=== PATIENT | female | born 1970 | race Caucasian/White ===

== ENCOUNTER 2018-03-01 07:46 | Day surgery (SDC) | payer BC ==
--- NOTE | 2018-03-01 07:08 | PCM.PREANE ---
Preanesthetic Assessment - Procedure Proposed Procedure: total laparoscopic hysterectomy - Anesthesia/Transfusion/Family Hx Anesthesia History: Prior Anesthesia Without Reaction (T+A, ectopic , tubal ligation: no anesthesia issues noted) Family History of Anesthesia Reaction: No Transfusion History: Prior Transfusion Without Reaction (post ectopic l995) - Review of Systems General: No Symptoms Pulmonary: No Symptoms Cardiovascular: No Symptoms Gastrointestinal: No Symptoms (ulcerative colitis, GERD) Neurological: No Symptoms (depression due to menopause) Other: Reports: None - Physical Assessment NPO Status Date: 03/01/18 NPO Status Time: 00:00 Pulse: 76 O2 Sat by Pulse Oximetry: 96 Respiratory Rate: 16 Blood Pressure: 123/85 Temperature: 36.5 C Height: 1.73 m Weight: 82.1 kg ASA Class: 2 Mental Status: Alert & Oriented x3 Airway Class: Mallampati = 1 Dentition: Reports: Normal Dentition Thyro-Mental Finger Breadths: 3 Mouth Opening Finger Breadths: 3 ROM/Head Extension: Full Lungs: Clear to Auscultation, Normal Respiratory Effort Cardiovascular: Regular Rate, Regular Rhythm, No Murmurs - Lab Values: Laboratory Last Values WBC 6.23 K/uL (4.0-11.0) 02/28/18 11:45 RBC 4.74 M/uL (4.30-5.90) 02/28/18 11:45 Hgb 14.8 g/dL (12.0-16.0) 02/28/18 11:45 Hct 43.8 % (36.0-46.0) 02/28/18 11:45 MCV 92.4 fL (80.0-98.0) 02/28/18 11:45 MCH 31.2 pg (27.0-32.0) 02/28/18 11:45 MCHC 33.8 g/dL (31.0-37.0) 02/28/18 11:45 RDW Std Deviation 44.0 fl (28.0-62.0) 02/28/18 11:45 RDW Coeff of Brandon 13 % (11.0-15.0) 02/28/18 11:45 Plt Count 204 K/uL (150-400) 02/28/18 11:45 MPV 10.20 fL (7.40-12.00) 02/28/18 11:45 Nucleated RBC % 0.0 /100WBC 02/28/18 11:45 Nucleated RBCs # 0 K/uL 02/28/18 11:45 Sodium 144 mmol/L (136-145) 02/28/18 11:45 Potassium 4.1 mmol/L (3.5-5.1) 02/28/18 11:45 Chloride 109 mmol/L (98-107) H 02/28/18 11:45 Carbon Dioxide 25.3 mmol/L (21.0-32.0) 02/28/18 11:45 BUN 17 mg/dL (7.0-18.0) 02/28/18 11:45 Creatinine 1.1 mg/dL (0.6-1.0) H 02/28/18 11:45 Est Cr Clr Drug Dosing 63.09 mL/min 02/28/18 11:45 Estimated GFR (MDRD) 53.0 ml/min 02/28/18 11:45 Glucose 81 mg/dL (74-106) 02/28/18 11:45 Calcium 9.5 mg/dL (8.5-10.1) 02/28/18 11:45 HCG, Qual NEGATIVE (NEG) 02/28/18 11:45 Blood Type O POSITIVE 02/28/18 11:45 Antibody Screen NEGATIVE 02/28/18 11:45 - Allergies Allergies/Adverse Reactions: Allergies Allergy/AdvReac Type Severity Reaction Status Date / Time No Known Allergies Allergy Verified 03/01/18 08:42 - Blood Blood Available: No Product(s) Available: None - Anesthesia Plan Pre-Op Medication Ordered: None - Acknowledgements Anesthesia Type Planned: General Anesthesia (General anesthesia discussed with patient and , all questions answered. consent signed.) Pt an Appropriate Candidate for the Planned Anesthesia: Yes Alternatives and Risks of Anesthesia Discussed w Pt/Guardian: Yes Pt/Guardian Understands and Agrees with Anesthesia Plan: Yes PreAnesthesia Questionnaire HEENT History: Reports: None Other Gastrointestinal History: ulcerative colitis, occasional heartburn Genitourinary History: Reports: None ACID CONDENSER History: Reports: Dysfunctional Uterine Bleeding, Ectopic , Psychiatric History: Reports: Anxiety, Depression Hematologic History: Reports: Blood Transfusion(s) - Past Surgical History Head Surgeries/Procedures: Reports: None HEENT Surgical History: Reports: Tonsillectomy Female Surgical History: Reports: Tubal Ligation, Other (See Below) Other Female Surgeries/Procedures: laparotomy for ectopic - SUBSTANCE USE Smoking Status *Q: Never Smoker Recreational Drug Use History: No - HOME MEDS Home Medications: Home Meds Cyanocobalamin (Vitamin B12) [Vitamin B12] 1 tab PO DAILY 02/26/18 [History] Magnesium 1 tab PO BEDTIME 02/26/18 [History] Melatonin 2 tab PO BEDTIME 02/26/18 [History] Norethindrone [Aygestin] 3 tab PO DAILY 02/26/18 [History] Sertraline HCl 50 mg PO DAILY 02/26/18 [History] Vitamin E 1 tab PO DAILY 02/26/18 [History] sulfaSALAzine [Sulfazine] 1 tab PO BID 02/26/18 [History] - CURRENT (IN HOUSE) MEDS Current Meds: Current Medications Lactated Ringer's (Ringers, Lactated) 1,000 mls @ 500 mls/hr IV BOLUS JOSEFINA Sodium Chloride (Saline Flush) 10 ml FLUSH ASDIRECTED PRN PRN Reason: Keep Vein Open Sodium Chloride (Saline Flush) 2.5 ml FLUSH ASDIRECTED PRN PRN Reason: Keep Vein Open Discontinued Medications Cefazolin Sodium (Ancef) Confirm Administered Dose 1 gm .ROUTE .STK-MED ONE Stop: 03/01/18 06:52 Cefazolin Sodium (Ancef) Confirm Administered Dose 1 gm .ROUTE .STK-MED ONE Stop: 03/01/18 06:52 Dexamethasone (Dexamethasone) Confirm Administered Dose 20 mg .ROUTE .STK-MED ONE Stop: 03/01/18 06:47 Diphenhydramine HCl (Benadryl) Confirm Administered Dose 50 mg .ROUTE .STK-MED ONE Stop: 03/01/18 06:46 Fentanyl (Sublimaze) Confirm Administered Dose 250 mcg .ROUTE .STK-MED ONE Stop: 03/01/18 06:48 Furosemide (Lasix) Confirm Administered Dose 40 mg .ROUTE .STK-MED ONE Stop: 03/01/18 06:54 Glycopyrrolate (Robinul) Confirm Administered Dose 0.2 mg .ROUTE .STK-MED ONE Stop: 03/01/18 06:55 Glycopyrrolate (Robinul) Confirm Administered Dose 0.2 mg .ROUTE .STK-MED ONE Stop: 03/01/18 06:55 Cefazolin Sodium/Dextrose 2 gm (/ Premix) 50 mls @ 100 mls/hr IV ONETIME ONE Stop: 02/28/18 10:23 Lidocaine HCl (Xylocaine-Mpf 1%) Confirm Administered Dose 5 mls @ as directed .ROUTE .STK-MED ONE Stop: 03/01/18 06:46 Sodium Chloride (Normal Saline) Confirm Administered Dose 20 mls @ as directed .ROUTE .ST-MED ONE Stop: 03/01/18 06:52 Midazolam HCl (Versed 1 Mg/Ml) Confirm Administered Dose 2 mg .ROUTE .ST-MED ONE Stop: 03/01/18 06:49 Neostigmine Methylsulfate (Neostigmine) Confirm Administered Dose 5 mg .ROUTE .ST-MED ONE Stop: 03/01/18 06:55 Ondansetron HCl (Zofran) Confirm Administered Dose 4 mg .ROUTE .ST-MED ONE Stop: 03/01/18 06:50 Phenylephrine HCl (Bret-Synephrine) Confirm Administered Dose 10 mg .ROUTE .ST- MED ONE Stop: 03/01/18 06:50 Propofol (Diprivan 20 Ml) Confirm Administered Dose 200 mg .ROUTE .STK-MED ONE Stop: 03/01/18 06:47 Rocuronium [place] (Zemuron) Confirm Administered Dose 100 mg .ROUTE .STK-MED ONE Stop: 03/01/18 06:49
[~2018-03-01 07:46] MED LIST: Dexamethasone 4 MG/ML 5 ML MDV ONE; Furosemide 40 MG/4 ML VIAL ONE; Glycopyrrolate 0.2 MG/ML SDV ONE; Lactated Ringers 1,000 ML IV SCH; Midazolam 1 MG/ML 2 ML SDV ONE; Neostigmine Methylsulfate 1 MG/ML 5 ML Syringe ONE; Ondansetron 4 MG/2 ML SDV ONE; Phenylephrine 1% 10 MG/ML SDV ONE; Propofol 200 MG/20 ML SDV ONE; Rocuronium 10 MG/ML 10 ML Syringe ONE; Sodium Chloride 0.9% 10 ML Syringe FLUSH PRN; Sodium Chloride 0.9% 2.5 ML Syringe FLUSH PRN; Sodium Chloride 0.9% 20 ML ONE; ceFAZolin 1 GM Vial ONE; ceFAZolin 2 GM in Premix Bag 1 BAG IV ONE; diphenhydrAMINE 50 MG/ML SDV ONE; fentaNYL 250 MCG/5 ML SDV ONE
[2018-03-01] MEDS ORDERED: HYDROmorphone 2 MG/ML SDV IVPUSH PRN (09:09)
[2018-03-01] MEDS ORDERED: Promethazine 25 MG/ML SDV IM SCH (09:15)
[2018-03-01] MEDS ORDERED: Meperidine PF 25 MG/ML Syringe IVPUSH SCH (09:15)
[2018-03-01] MEDS ORDERED: Ondansetron 4 MG/2 ML SDV IVPUSH SCH (09:15)
[2018-03-01] MEDS ORDERED: Fluorescein 5 ML Vial ONE (09:33)
[2018-03-01] MEDS ORDERED: Ketorolac 30 MG/ML SDV ONE ×2 (09:33→11:53)
[2018-03-01] MEDS ORDERED: fentaNYL 100 MCG/2 ML SDV ONE (11:06)
[2018-03-01] MEDS ORDERED: Octyl 2-Cyanoacrylate 1 Tube ONE (11:12)
[2018-03-01] MEDS ORDERED: Ketorolac 30 MG/ML SDV IVPUSH PRN (11:18)
[2018-03-01] MEDS ORDERED: Morphine 4 MG/ML Syringe IVPUSH PRN (11:18)
[2018-03-01] MEDS ORDERED: Ondansetron 4 MG/2 ML SDV IVPUSH PRN (11:18)
[2018-03-01] MEDS ORDERED: Ketorolac 30 MG/ML SDV IVPUSH ONE (11:18)
[2018-03-01] MEDS ORDERED: Promethazine 25 MG/ML SDV IM PRN (11:18)
[2018-03-01] MEDS ORDERED: Acetaminophen/oxyCODONE 325-5 MG Tab PO PRN (11:18)
--- NOTE | 2018-03-01 11:22 | PCM.OPNOTE ---
- General Post-Op/Procedure Note Date of Surgery/Procedure: 03/01/18 Operative Procedure(s): TLH,RSO and Cystoscopy. Pre Op Diagnosis: Bleeding Post-Op Diagnosis: Same Anesthesia Technique: General LMA Primary Surgeon: Paramjit Estrada EBL in mLs: 100 Complications: None Condition: Good
[2018-03-01] MEDS ORDERED: Meperidine PF 25 MG/ML Syringe ONE (11:32)
--- NOTE | 2018-03-01 11:59 | PCM.POSTAN ---
POST ANESTHESIA ASSESSMENT - MENTAL STATUS Mental Status: Alert, Oriented - VITAL SIGNS SaO2: 94 - RESPIRATORY Respiratory Status: Respiratory Rate WNL, Airway Patent, O2 Saturation Stable - CARDIOVASCULAR CV Status: Pulse Rate WNL, Blood Pressure Stable - GASTROINTESTINAL GI Status: No Symptoms - PAIN Pain Score: 2 - POST OP HYDRATION Hydration Status: Adequate & Stable - OBSERVATIONS Free Text/Narrative:: PT awake and alert. Pain is a 2(cramping.) VSS
[2018-03-01] MEDS ORDERED: ceFAZolin 1 GM Vial ONE ×2 (12:17)
[2018-03-01] MEDS ORDERED: Sodium Chloride 0.9% 20 ML ONE (12:18)
--- NOTE | 2018-03-01 12:48 | OR ---
SURGEON: Paramjit Estrada MD DATE OF PROCEDURE: 03/01/2018 PREOPERATIVE DIAGNOSES: 1. Menometrorrhagia. 2. Pelvic pain. POSTOPERATIVE DIAGNOSES: 1. Menometrorrhagia. 2. Pelvic pain. OPERATIONS PERFORMED: Total laparoscopic hysterectomy, right salpingo-oophorectomy, lysing of adhesions. The patient has already have left salpingo-oophorectomy and cystoscopy. [employer]: OR tech. ANESTHESIA: General endotracheal intubation. ESTIMATED BLOOD LOSS: 100 to 125. COMPLICATIONS: None. FINDINGS: Uterus is about 12-week size. Pelvic adhesion from her previous surgery. INDICATION FOR SURGERY: [place] refer to the admit note. PROCEDURE IN DETAIL: The patient was brought to the OR, properly identified and after adequate level of anesthesia, placed in lithotomy position with an access to the pelvis and the abdomen. The patient was prepped and draped in sterile fashion as usual and then after time-out was taken and patient properly identified, the [employer] manipulator was placed in uterus for manipulation and Palacios catheter was placed in the bladder for draining and then the operation shifted abdominally. Stab wound was done beneath the umbilicus. The Veress needle was placed in the peritoneal cavity and that cavity insufflated with 3.5 L of carbon dioxide and then utilizing the Visiport technique, central trocar infraumbilical was placed. A 5 mm trocar was placed under direct vision. Once that is done, then we placed the patient in steep Trendelenburg. 10 to 12 trocar placed in the left iliac fossa utilizing the same old scar, and then 5 mm trocar in the right iliac fossa under direct vision. The operation started by identifying the landmark of the anatomy. There was adhesion between the omentum and the top of the uterus and the area where she have had left tubes and ovaries removed. Using the Harmonic scapula, these adhesions were lysed without any problem and restoring normal anatomy. Then, round ligament on the left side was coagulated, transected, and then the anterior leaf of the broad ligament was dissected downwards medially pushing the bladder away from the operative field. Skeletonization of the uterine vessel was done and this vessel was coagulated and transected with Rinku Harmonic scapula at the tip of the manipulator. The same thing was done on the right side. The tubes and ovaries included with the specimen and once we coagulated and transected the round ligament and the uterine vessels, then the vaginal cavity was entered at the age of the [employer]Care manipulator using the Rinku Harmonic scapula in a circular manner detaching the bladder away from the vagina. The uterus, cervix, and right tube and ovary removed vaginally and then pneumoperitoneum was re-established by placing vaginal pack in the vagina. Irrigation was done at this time, inspected and there was no oozing and no bleeding. We proceeded to close the vaginal cuff laparoscopically using 2-0 PDS interrupted suture. While we are doing that, we asked Anesthesia to give the patient fluorescein and after closing the vaginal cuff, the abdomen was deflated. Palacios catheter was removed, cystoscopy was performed, the bladder was intact. Both ureteric orifices seen with dye coming from both of them. Thus, the patency of both ureters verified. The bladder was intact. Then, after that the cystoscope was removed and the bladder drained, and hardware retrieved from the abdomen and the vagina, and the multiple laparoscopic incisions were closed with 2-0 Vicryl sutures in layer and Dermabond. Instrument and sponge count was correct. The patient tolerated the procedure well, went to recovery room in stable general condition. MAHESH / DAGOBERTO /[id number]
[2018-03-01] MEDS: Acetaminophen/oxyCODONE 325-5 MG Tab PO PRN ×2 (13:32→18:26)
--- NOTE | 2018-03-01 13:45 | PCM48HPAN ---
Post Anesthesia Note - EVALUATION WITHIN 48HRS OF ANESTHETIC Vital Signs in Normal Range: Yes Patient Participated in Evaluation: Yes (Pt sitting up in bed drinking water and eating crackers) Respiratory Function Stable: Yes Airway Patent: Yes (awake and talking) Cardiovascular Function Stable: Yes Hydration Status Stable: Yes (taking water) Pain Control Satisfactory: Yes (She had just taken pain medication and c/o rectal pressure. Pain a 6) Nausea and Vomiting Control Satisfactory: Yes (no nausea) Mental Status Recovered: Yes (alert and oriented X3) Pulse Rate: 76 Resp Rate: 15 Temperature: 36.5 C Blood Pressure: 123/85
--- NOTE | 2018-03-02 09:44 | PCM.SURGPN ---
- General Info Date of Service: 03/02/18 POD#: 1 Functional Status: Reports: Pain Controlled - Review of Systems General: Reports: No Symptoms HEENT: Reports: No Symptoms Pulmonary: Reports: No Symptoms Cardiovascular: Reports: No Symptoms Gastrointestinal: Reports: No Symptoms Genitourinary: Reports: No Symptoms Musculoskeletal: Reports: No Symptoms Skin: Reports: No Symptoms Neurological: Reports: No Symptoms Psychiatric: Reports: No Symptoms - Patient Data Vitals - Most Recent: Last Vital Signs Temp 37.0 C 03/02/18 08:00 Pulse 64 03/02/18 08:00 Resp 18 03/02/18 08:00 BP 121/80 03/02/18 08:00 Pulse Ox 96 03/02/18 08:00 Weight - Most Recent: 82.1 kg I&O - Last 24 Hours: Intake & Output 03/01/18 03/02/18 03/02/18 22:59 06:59 14:59 Intake Total 500 750 Output Total 700 700 Balance -200 50 Lab Results Last 24 Hrs: Laboratory Results - last 24 hr 03/02/18 03/02/18 Range/Units 05:20 05:20 WBC 9.36 (4.0-11.0) K/uL RBC 4.35 (4.30-5.90) M/uL Hgb 13.3 (12.0-16.0) g/dL Hct 39.8 (36.0-46.0) % MCV 91.5 (80.0-98.0) fL MCH 30.6 (27.0-32.0) pg MCHC 33.4 (31.0-37.0) g/dL RDW Std Deviation 43.5 (28.0-62.0) fl RDW Coeff of Brandon 13 (11.0-15.0) % Plt Count 195 (150-400) K/uL MPV 10.70 (7.40-12.00) fL Neut % (Auto) 73.0 (48.0-80.0) % Lymph % (Auto) 17.3 (16.0-40.0) % Jack % (Auto) 8.4 (0.0-15.0) % Eos % (Auto) 1.2 (0.0-7.0) % Baso % (Auto) 0.1 (0.0-1.5) % Neut # (Auto) 6.8 H (1.4-5.7) K/uL Lymph # (Auto) 1.6 (0.6-2.4) K/uL Jack # (Auto) 0.8 (0.0-0.8) K/uL Eos # (Auto) 0.1 (0.0-0.7) K/uL Baso # (Auto) 0.0 (0.0-0.1) K/uL Nucleated RBC % 0.0 /100WBC Nucleated RBCs # 0 K/uL Sodium 139 (136-145) mmol/L Potassium 3.9 (3.5-5.1) mmol/L Chloride 106 (98-107) mmol/L Carbon Dioxide 24.3 (21.0-32.0) mmol/L BUN 14 (7.0-18.0) mg/dL Creatinine 1.1 H (0.6-1.0) mg/dL Est Cr Clr Drug Dosing 63.09 mL/min Estimated GFR (MDRD) 53.0 ml/min Glucose 108 H (74-106) mg/dL Calcium 8.4 L (8.5-10.1) mg/dL Med Orders - Current: Current Medications Lactated Ringer's (Ringers, Lactated) 1,000 mls @ 500 mls/hr IV BOLUS JOSEFINA Last Admin: 03/01/18 08:53 Dose: 500 mls/hr Ketorolac Tromethamine (Toradol) 30 mg IVPUSH Q6H PRN PRN Reason: Pain (severe 7-10) Stop: 03/06/18 11:19 Meperidine HCl (Demerol) 12.5 mg IVPUSH .ONCE JOSEFINA Last Admin: 03/01/18 11:34 Dose: 12.5 mg Morphine Sulfate (Morphine) 4 mg IVPUSH Q2H PRN PRN Reason: Pain (severe 7-10) Ondansetron HCl (Zofran) 4 mg IVPUSH .ONCE JOSEFINA Ondansetron HCl (Zofran) 4 mg IVPUSH Q6H PRN PRN Reason: Nausea/Vomiting Oxycodone/Acetaminophen (Percocet 325-5 Mg) 1 tab PO Q4H PRN PRN Reason: Pain (moderate 4-6) Last Admin: 03/02/18 00:44 Dose: 1 tab Oxycodone/Acetaminophen (Percocet 325-5 Mg) 2 tab PO Q4H PRN PRN Reason: Pain (moderate 4-6) Last Admin: 03/01/18 18:26 Dose: 2 tab Promethazine HCl (Phenergan) 12.5 mg IM .ONCE JOSEFINA Promethazine HCl (Phenergan) 25 mg IM Q6H PRN PRN Reason: Nausea/Vomiting Sodium Chloride (Saline Flush) 10 ml FLUSH ASDIRECTED PRN PRN Reason: Keep Vein Open Sodium Chloride (Saline Flush) 2.5 ml FLUSH ASDIRECTED PRN PRN Reason: Keep Vein Open Discontinued Medications Cefazolin Sodium (Ancef) Confirm Administered Dose 1 gm .ROUTE .ST-MED ONE Stop: 03/01/18 06:52 Cefazolin Sodium (Ancef) Confirm Administered Dose 1 gm .ROUTE .[employer]-MED ONE Stop: 03/01/18 06:52 Cefazolin Sodium (Ancef) Confirm Administered Dose 1 gm .ROUTE .[employer]-MED ONE Stop: 03/01/18 12:18 Cefazolin Sodium (Ancef) Confirm Administered Dose 1 gm .ROUTE .[employer]-MED ONE Stop: 03/01/18 12:18 Dexamethasone (Dexamethasone) Confirm Administered Dose 20 mg .ROUTE .ST-MED ONE Stop: 03/01/18 06:47 Diphenhydramine HCl (Benadryl) Confirm Administered Dose 50 mg .ROUTE .STK-MED ONE Stop: 03/01/18 06:46 Fentanyl (Sublimaze) Confirm Administered Dose 250 mcg .ROUTE .[employer]-MED ONE Stop: 03/01/18 06:48 Fentanyl (Sublimaze) Confirm Administered Dose 100 mcg .ROUTE .ST-MED ONE Stop: 03/01/18 11:07 Fluorescein Sodium (Ak-Fluor) Confirm Administered Dose 5 ml .ROUTE .STK-MED ONE Stop: 03/01/18 09:34 Furosemide (Lasix) Confirm Administered Dose 40 mg .ROUTE .STK-MED ONE Stop: 03/01/18 06:54 Glycopyrrolate (Robinul) Confirm Administered Dose 0.2 mg .ROUTE .STK-MED ONE Stop: 03/01/18 06:55 Glycopyrrolate (Robinul) Confirm Administered Dose 0.2 mg .ROUTE .STK-MED ONE Stop: 03/01/18 06:55 Hydromorphone HCl (Dilaudid) 0.25 mg IVPUSH Q10M PRN PRN Reason: Pain (severe 7-10) Stop: 03/02/18 09:10 Cefazolin Sodium/Dextrose 2 gm (/ Premix) 50 mls @ 100 mls/hr IV ONETIME ONE Stop: 02/28/18 10:23 Last Admin: 03/01/18 13:50 Dose: Not Given Lidocaine HCl (Xylocaine-Mpf 1%) Confirm Administered Dose 5 mls @ as directed .ROUTE .[facility]-MED ONE Stop: 03/01/18 06:46 Sodium Chloride (Normal Saline) Confirm Administered Dose 20 mls @ as directed .ROUTE .[facility] ONE Stop: 03/01/18 06:52 Acetaminophen (Ofirmev) Confirm Administered Dose 100 mls @ as directed IV .[facility] ONE Stop: 03/01/18 09:36 Sodium Chloride (Normal Saline) Confirm Administered Dose 20 mls @ as directed .ROUTE .[facility] ONE Stop: 03/01/18 12:19 Ketorolac Tromethamine (Toradol) Confirm Administered Dose 30 mg .ROUTE .[facility]- MED ONE Stop: 03/01/18 09:34 Ketorolac Tromethamine (Toradol) 30 mg IVPUSH ONETIME ONE Stop: 03/01/18 11:19 Last Admin: 03/01/18 13:50 Dose: Not Given Ketorolac Tromethamine (Toradol) Confirm Administered Dose 30 mg .ROUTE .[facility] ONE Stop: 03/01/18 11:54 Meperidine HCl (Demerol) Confirm Administered Dose 25 mg .ROUTE .[facility]-MED ONE Stop: 03/01/18 11:33 Last Admin: 03/01/18 13:50 Dose: Not Given Midazolam HCl (Versed 1 Mg/Ml) Confirm Administered Dose 2 mg .ROUTE .[facility]-MED ONE Stop: 03/01/18 06:49 Neostigmine Methylsulfate (Neostigmine) Confirm Administered Dose 5 mg .ROUTE .[facility]-MED ONE Stop: 03/01/18 06:55 Octyl Cyanoacrylate (Dermabond Advance) Confirm Administered Dose 1 applic .ROUTE .[facility]-MED ONE Stop: 03/01/18 11:13 Ondansetron HCl (Zofran) Confirm Administered Dose 4 mg .ROUTE .STK-MED ONE Stop: 03/01/18 06:50 Phenylephrine HCl (Bret-Synephrine) Confirm Administered Dose 10 mg .ROUTE .STK- MED ONE Stop: 03/01/18 06:50 Propofol (Diprivan 20 Ml) Confirm Administered Dose 200 mg .ROUTE .STK-MED ONE Stop: 03/01/18 06:47 Rocuronium [place] (Zemuron) Confirm Administered Dose 100 mg .ROUTE .STK-MED ONE Stop: 03/01/18 06:49 - Exam Wound/Incisions: Healing Well General: Alert, Oriented HEENT: Pupils Equal Neck: Supple Lungs: Clear to Auscultation, Normal Respiratory Effort Cardiovascular: Regular Rate, Regular Rhythm GI/Abdominal Exam: Normal Bowel Sounds, Soft, Non-Tender, No Organomegaly, No Distention, No Abnormal Bruit, No Mass, Pelvis Stable Extremities: Normal Inspection, Normal Range of Motion, Non-Tender, No Pedal Edema, Normal Capillary Refill Skin: Warm, Dry, Intact Neurological: No New Focal Deficit Psy/Mental Status: Alert, Normal Affect, Normal Mood - Problem List Review Problem List Initiated/Reviewed/Updated: Yes - My Orders Last 24 Hours: Active Orders 24 hr Category Date Time Status Patient Status [ADT] Routine ADT 03/01/18 11:19 Active Bradycardia-Neuroaxis [employer] [RC] ROUTINE Care 03/01/18 09:09 Active Hypertension-Neuroaxis [employer] [RC] ROUTINE Care 03/01/18 09:09 Active Hypotension-Neuroaxis [employer] [RC] ROUTINE Care 03/01/18 09:09 Active Notify Provider Vital Signs [RC] ASDIRECTED Care 03/01/18 11:19 Active Oxygen Therapy [RC] ASDIRECTED Care 03/01/18 11:19 Active RT Incentive Spirometry [RC] Q2HWA Care 03/01/18 11:19 Active Up With Assistance [RC] PER UNIT ROUTINE Care 03/01/18 11:19 Active Up ad Halle [RC] PER UNIT ROUTINE Care 03/01/18 11:19 Active Urinary Catheter Removal [RC] Per Unit Routine Care 03/01/18 11:19 Active Vital Signs [RC] PER UNIT ROUTINE Care 03/01/18 11:19 Active Regular Diet [DIET] Diet 03/01/18 Dinner Active Acetaminophen/oxyCODONE [Percocet 325-5 MG] Med 03/01/18 11:18 Active 1 tab PO Q4H PRN Acetaminophen/oxyCODONE [Percocet 325-5 MG] Med 03/01/18 11:18 Active 2 tab PO Q4H PRN Ketorolac [Toradol] Med 03/01/18 11:18 Active 30 mg IVPUSH Q6H PRN Meperidine [Demerol] Med 03/01/18 09:15 Active 12.5 mg IVPUSH .ONCE Morphine Med 03/01/18 11:18 Active 4 mg IVPUSH Q2H PRN Ondansetron [Zofran] Med 03/01/18 09:15 Active 4 mg IVPUSH .ONCE Ondansetron [Zofran] Med 03/01/18 11:18 Active 4 mg IVPUSH Q6H PRN Promethazine [Phenergan] Med 03/01/18 09:15 Active 12.5 mg IM .ONCE Promethazine [Phenergan] Med 03/01/18 11:18 Active 25 mg IM Q6H PRN Peripheral IV Discontinue [OM.PC] Routine Oth 03/01/18 11:19 Ordered Sequential Compression Device [OM.PC] Per Unit Routine Oth 03/01/18 11:19 Ordered Resuscitation Status Routine Resus Stat 03/01/18 11:18 Ordered Medication Orders Lactated Ringer's (Ringers, Lactated) 1,000 mls @ 500 mls/hr IV BOLUS JOSEFINA Last Admin: 03/01/18 08:53 Dose: 500 mls/hr Ketorolac Tromethamine (Toradol) 30 mg IVPUSH Q6H PRN PRN Reason: Pain (severe 7-10) Stop: 03/06/18 11:19 Meperidine HCl (Demerol) 12.5 mg IVPUSH .ONCE JOSEFINA Last Admin: 03/01/18 11:34 Dose: 12.5 mg Morphine Sulfate (Morphine) 4 mg IVPUSH Q2H PRN PRN Reason: Pain (severe 7-10) Ondansetron HCl (Zofran) 4 mg IVPUSH .ONCE JOSEFINA Ondansetron HCl (Zofran) 4 mg IVPUSH Q6H PRN PRN Reason: Nausea/Vomiting Oxycodone/Acetaminophen (Percocet 325-5 Mg) 1 tab PO Q4H PRN PRN Reason: Pain (moderate 4-6) Last Admin: 03/02/18 00:44 Dose: 1 tab Oxycodone/Acetaminophen (Percocet 325-5 Mg) 2 tab PO Q4H PRN PRN Reason: Pain (moderate 4-6) Last Admin: 03/01/18 18:26 Dose: 2 tab Admin: 03/01/18 13:32 Dose: 2 tab Promethazine HCl (Phenergan) 12.5 mg IM .ONCE JOSEFINA Promethazine HCl (Phenergan) 25 mg IM Q6H PRN PRN Reason: Nausea/Vomiting Sodium Chloride (Saline Flush) 10 ml FLUSH ASDIRECTED PRN PRN Reason: Keep Vein Open Sodium Chloride (Saline Flush) 2.5 ml FLUSH ASDIRECTED PRN PRN Reason: Keep Vein Open - Assessment Assessment (Free Text/Narrative):: Status post total laparoscopic hysterectomy and right salpingo-oophorectomy with cystoscopy postoperative day #1 patient is doing well diet no vaginal bleeding voiding without any problem - Plan Plan (Free Text/Narrative):: The patient will be discharged home today the postvasectomy instruction is given to the patient prescription for Percocet 7.5/325 for postoperative pain there is no section on her diet the patient is already have an appointment to come see me in 7-10 days
--- NOTE | 2018-03-02 09:45 | PCM.DCSUM1 ---
Discharge Summary - Hospital Course Diagnosis: Stroke: No - Discharge Data Discharge Date: 03/02/18 Discharge Disposition: Home, Self-Care 01 Condition: Good - Patient Summary/Data Operative Procedure(s) Performed: TLH,RSO and Cystoscopy. - Patient Instructions Diet: Usual Diet as Tolerated Activity: As Tolerated Driving: Do Not Drive Showering/Bathing: May Shower Notify Provider of: Fever, Increased Pain, Nausea and/or Vomiting - Discharge Plan Home Medications: Home Meds Cyanocobalamin (Vitamin B12) [Vitamin B12] 1 tab PO DAILY 02/26/18 [History] Magnesium 1 tab PO BEDTIME 02/26/18 [History] Melatonin 2 tab PO BEDTIME 02/26/18 [History] Norethindrone [Aygestin] 3 tab PO DAILY 02/26/18 [History] Sertraline HCl 50 mg PO DAILY 02/26/18 [History] Vitamin E 1 tab PO DAILY 02/26/18 [History] sulfaSALAzine [Sulfazine] 1 tab PO BID 02/26/18 [History] Patient Handouts: Acetaminophen; Oxycodone tablets, Laparoscopically Assisted Vaginal Hysterectomy, Care After Referrals: Paramjit Estrada MD [Physician] - 03/09/18 10:45 am - Discharge Summary/Plan Comment DC Time >30 min.: Yes - General Info Date of Service: 03/02/18 Functional Status: Reports: Pain Controlled - Review of Systems General: Reports: No Symptoms HEENT: Reports: No Symptoms Pulmonary: Reports: No Symptoms Cardiovascular: Reports: No Symptoms Gastrointestinal: Reports: No Symptoms Genitourinary: Reports: No Symptoms Musculoskeletal: Reports: No Symptoms Skin: Reports: No Symptoms Neurological: Reports: No Symptoms Psychiatric: Reports: No Symptoms - Patient Data Vitals - Most Recent: Last Vital Signs Temp 37.0 C 03/02/18 08:00 Pulse 64 03/02/18 08:00 Resp 18 03/02/18 08:00 BP 121/80 03/02/18 08:00 Pulse Ox 96 03/02/18 08:00 Weight - Most Recent: 82.1 kg I&O - Last 24 hours: Intake & Output 03/01/18 03/02/18 03/02/18 22:59 06:59 14:59 Intake Total 500 750 Output Total 700 700 Balance -200 50 Lab Results - Last 24 hrs: Laboratory Results - last 24 hr 03/02/18 03/02/18 Range/Units 05:20 05:20 WBC 9.36 (4.0-11.0) K/uL RBC 4.35 (4.30-5.90) M/uL Hgb 13.3 (12.0-16.0) g/dL Hct 39.8 (36.0-46.0) % MCV 91.5 (80.0-98.0) fL MCH 30.6 (27.0-32.0) pg MCHC 33.4 (31.0-37.0) g/dL RDW Std Deviation 43.5 (28.0-62.0) fl RDW Coeff of [place] 13 (11.0-15.0) % Plt Count 195 (150-400) K/uL MPV 10.70 (7.40-12.00) fL Neut % (Auto) 73.0 (48.0-80.0) % Lymph % (Auto) 17.3 (16.0-40.0) % [place] % (Auto) 8.4 (0.0-15.0) % Eos % (Auto) 1.2 (0.0-7.0) % Baso % (Auto) 0.1 (0.0-1.5) % Neut # (Auto) 6.8 H (1.4-5.7) K/uL Lymph # (Auto) 1.6 (0.6-2.4) K/uL [place] # (Auto) 0.8 (0.0-0.8) K/uL Eos # (Auto) 0.1 (0.0-0.7) K/uL Baso # (Auto) 0.0 (0.0-0.1) K/uL Nucleated RBC % 0.0 /100WBC Nucleated RBCs # 0 K/uL Sodium 139 (136-145) mmol/L Potassium 3.9 (3.5-5.1) mmol/L Chloride 106 (98-107) mmol/L Carbon Dioxide 24.3 (21.0-32.0) mmol/L BUN 14 (7.0-18.0) mg/dL Creatinine 1.1 H (0.6-1.0) mg/dL Est Cr Clr Drug Dosing 63.09 mL/min Estimated GFR (MDRD) 53.0 ml/min Glucose 108 H (74-106) mg/dL Calcium 8.4 L (8.5-10.1) mg/dL Med Orders - Current: Current Medications Lactated Ringer's (Ringers, Lactated) 1,000 mls @ 500 mls/hr IV BOLUS JOSEFINA Last Admin: 03/01/18 08:53 Dose: 500 mls/hr Ketorolac Tromethamine (Toradol) 30 mg IVPUSH Q6H PRN PRN Reason: Pain (severe 7-10) Stop: 03/06/18 11:19 Meperidine HCl (Demerol) 12.5 mg IVPUSH .ONCE JOSEFINA Last Admin: 03/01/18 11:34 Dose: 12.5 mg Morphine Sulfate (Morphine) 4 mg IVPUSH Q2H PRN PRN Reason: Pain (severe 7-10) Ondansetron HCl (Zofran) 4 mg IVPUSH .ONCE JOSEFINA Ondansetron HCl (Zofran) 4 mg IVPUSH Q6H PRN PRN Reason: Nausea/Vomiting Oxycodone/Acetaminophen (Percocet 325-5 Mg) 1 tab PO Q4H PRN PRN Reason: Pain (moderate 4-6) Last Admin: 03/02/18 00:44 Dose: 1 tab Oxycodone/Acetaminophen (Percocet 325-5 Mg) 2 tab PO Q4H PRN PRN Reason: Pain (moderate 4-6) Last Admin: 03/01/18 18:26 Dose: 2 tab Promethazine HCl (Phenergan) 12.5 mg IM .ONCE JOSEFINA Promethazine HCl (Phenergan) 25 mg IM Q6H PRN PRN Reason: Nausea/Vomiting Sodium Chloride (Saline Flush) 10 ml FLUSH ASDIRECTED PRN PRN Reason: Keep Vein Open Sodium Chloride (Saline Flush) 2.5 ml FLUSH ASDIRECTED PRN PRN Reason: Keep Vein Open Discontinued Medications Cefazolin Sodium (Ancef) Confirm Administered Dose 1 gm .ROUTE .[facility]-MED ONE Stop: 03/01/18 06:52 Cefazolin Sodium (Ancef) Confirm Administered Dose 1 gm .ROUTE .[facility]K-MED ONE Stop: 03/01/18 06:52 Cefazolin Sodium (Ancef) Confirm Administered Dose 1 gm .ROUTE .[facility]K-MED ONE Stop: 03/01/18 12:18 Cefazolin Sodium (Ancef) Confirm Administered Dose 1 gm .ROUTE .[facility] ONE Stop: 03/01/18 12:18 Dexamethasone (Dexamethasone) Confirm Administered Dose 20 mg .ROUTE .[facility]-MED ONE Stop: 03/01/18 06:47 Diphenhydramine HCl (Benadryl) Confirm Administered Dose 50 mg .ROUTE .[facility] ONE Stop: 03/01/18 06:46 Fentanyl (Sublimaze) Confirm Administered Dose 250 mcg .ROUTE .[facility]-MED ONE Stop: 03/01/18 06:48 Fentanyl (Sublimaze) Confirm Administered Dose 100 mcg .ROUTE .[facility] ONE Stop: 03/01/18 11:07 Fluorescein Sodium (Ak-Fluor) Confirm Administered Dose 5 ml .ROUTE .[facility] ONE Stop: 03/01/18 09:34 Furosemide (Lasix) Confirm Administered Dose 40 mg .[address]TE .[facility] ONE Stop: 03/01/18 06:54 Glycopyrrolate (Robinul) Confirm Administered Dose 0.2 mg .ROUTE .[facility] ONE Stop: 03/01/18 06:55 Glycopyrrolate (Robinul) Confirm Administered Dose 0.2 mg .ROUTE .[facility] ONE Stop: 03/01/18 06:55 Hydromorphone HCl (Dilaudid) 0.25 mg IVPUSH Q10M PRN PRN Reason: Pain (severe 7-10) Stop: 03/02/18 09:10 Cefazolin Sodium/Dextrose 2 gm (/ Premix) 50 mls @ 100 mls/hr IV ONETIME ONE Stop: 02/28/18 10:23 Last Admin: 03/01/18 13:50 Dose: Not Given Lidocaine HCl (Xylocaine-Mpf 1%) Confirm Administered Dose 5 mls @ as directed .ROUTE .[facility] ONE Stop: 03/01/18 06:46 Sodium Chloride (Normal Saline) Confirm Administered Dose 20 mls @ as directed .ROUTE .[facility] ONE Stop: 03/01/18 06:52 Acetaminophen (Ofirmev) Confirm Administered Dose 100 mls @ as directed IV .[facility]- [facility] ONE Stop: 03/01/18 09:36 Sodium Chloride (Normal Saline) Confirm Administered Dose 20 mls @ as directed .ROUTE .[facility] ONE Stop: 03/01/18 12:19 Ketorolac Tromethamine (Toradol) Confirm Administered Dose 30 mg .[address] .[facility] ONE Stop: 03/01/18 09:34 Ketorolac Tromethamine (Toradol) 30 mg IVPUSH ONETIME ONE Stop: 03/01/18 11:19 Last Admin: 03/01/18 13:50 Dose: Not Given Ketorolac Tromethamine (Toradol) Confirm Administered Dose 30 mg .ROUTE .[facility] ONE Stop: 03/01/18 11:54 Meperidine HCl (Demerol) Confirm Administered Dose 25 mg .ROUTE .[facility] ONE Stop: 03/01/18 11:33 Last Admin: 03/01/18 13:50 Dose: Not Given Midazolam HCl (Versed 1 Mg/Ml) Confirm Administered Dose 2 mg .ROUTE .[facility] ONE Stop: 03/01/18 06:49 Neostigmine Methylsulfate (Neostigmine) Confirm Administered Dose 5 mg .ROUTE .[facility] ONE Stop: 03/01/18 06:55 Octyl Cyanoacrylate (Dermabond Advance) Confirm Administered Dose 1 applic .ROUTE .[facility] ONE Stop: 03/01/18 11:13 Ondansetron HCl (Zofran) Confirm Administered Dose 4 mg .ROUTE .[facility] ONE Stop: 03/01/18 06:50 Phenylephrine HCl (Bret-Synephrine) Confirm Administered Dose 10 mg .ROUTE .[facility] ONE Stop: 03/01/18 06:50 Propofol (Diprivan 20 Ml) Confirm Administered Dose 200 mg .ROUTE .[facility] ONE Stop: 03/01/18 06:47 Rocuronium Gable (Zemuron) Confirm Administered Dose 100 mg .ROUTE .[facility] ONE Stop: 03/01/18 06:49 - Exam General: Reports: Alert, Oriented HEENT: Reports: Pupils Equal, Pupils Reactive, EOMI, Mucous Membr. Moist/[place] Neck: Reports: Supple Lungs: Reports: Clear to Auscultation, Normal Respiratory Effort Cardiovascular: Reports: Regular Rate, Regular Rhythm GI/Abdominal Exam: Normal Bowel Sounds, Soft, Non-Tender, No Organomegaly, No Distention, No Abnormal Bruit, No Mass, Pelvis Stable (Female) Exam: Normal External Exam, Normal Speculum Exam, Normal Bimanual Exam Rectal (Female) Exam: Normal Exam, Normal Rectal Tone Back Exam: Reports: Normal Inspection, Full Range of Motion Extremities: Normal Inspection, Normal Range of Motion, Non-Tender, No Pedal Edema, Normal Capillary Refill Skin: Reports: Warm, Dry, Intact Wound/Incisions: Reports: Healing Well Neurological: Reports: No New Focal Deficit Psy/Mental Status: Reports: Alert, Normal Affect, Normal Mood
== END 2018-03-02 10:20 | disposition home or self-care (01) ==
LOC: MW.SDS 07:46 → MW.MS 10:15 → MW.SDS 03-02 10:20
PROVIDERS: ATTEND Obstetrics & Gynecology
DX: D26.1 Other benign neoplasm of corpus uteri (principal); N87.9 Dysplasia of cervix uteri, unspecified; J01.40 Acute pansinusitis, unspecified; F51.04 Psychophysiologic insomnia; F32.0 Major depressive disorder, single episode, mild; F41.9 Anxiety disorder, unspecified; K51.90 Ulcerative colitis, unspecified, without complications; Z79.899 Other long term (current) drug therapy
CPT/HCPCS: 36415; 58571; 80048; 84703; 85025; 85027; 86850; 86900; 86901; A9270; J0131; J0690; J1100; J1200; J1885; J1940; J2175; J2250; J2405; J2704; J3010; J3490; J7120; 88309; J2370

== ENCOUNTER 2018-03-03 17:18 | Emergency (ER) | payer BC ==
--- NOTE | 2018-03-03 17:32 | EDM.PDOC ---
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 Mendez him she rates pain 5 out of 10 nonradiating with some bloody stools she feels as if she has to have a bowel movement but has been unable to a bowel movement since surgery Fever nausea vomiting chills sweats no chest pain shortness breath headache dizziness palpitation no urine symptoms patient is passing flatus however she has pain associated with bowel movement she does feel the urge to go she has taken enemas and laxatives at home however between surgery and ulcerative colitis she is having pain with defecation which has kept her from having bowel movement History of ulcerative colitis Note oxycodone provided postoperatively is not providing much benefit for pain control per patient ] Review of systems: As per history of present illness and below otherwise all systems reviewed and negative. Past medical history: As per history of present illness and as reviewed below otherwise noncontributory. Surgical history: As per history of present illness and as reviewed below otherwise noncontributory. Social history: No reported history of drug or alcohol abuse. Family history: As per history of present illness and as reviewed below otherwise noncontributory. Physical exam: HEENT: Atraumatic, normocephalic, pupils reactive, negative for conjunctival pallor or scleral icterus, mucous membranes moist, throat clear, neck supple, nontender, trachea midline. Lungs: Clear to auscultation, breath sounds equal bilaterally, chest nontender. Heart: S1S2, regular, negative for clicks, rubs, or JVD. Abdomen: Soft, nondistended, diffuse tender without focus on deep palpation surgical scars noted clean dry intact no redness warmth or drainage. Negative for masses or hepatosplenomegaly. Negative for costovertebral tenderness. Pelvis: Stable nontender. Genitourinary: Deferred. Rectal: No Mass scarred lesion guaiac 1+, small amount of soft stool high in the rectal vault Extremities: Atraumatic, negative for cords or calf pain. Neurovascular unremarkable. Neuro: Awake, alert, oriented. Cranial nerves II through XII unremarkable. Cerebellum unremarkable. Motor and sensory unremarkable throughout. Exam nonfocal. Diagnostics: [CBC CMP lipase troponin UA Flat and upright abdomen ] Therapeutics: Morphine 2 mg IM Reglan [place] ] Impression: [] abdominal pain Ulcerative colitis 1+ guaiac positive Definitive disposition and diagnosis as appropriate pending reevaluation and review of above. rectal pain Pain Score (Numeric/FACES): 8 - Related Data Allergies Allergy/AdvReac Type Severity Reaction Status Date / Time No Known Allergies Allergy Verified 03/03/18 17:22 Home Meds: Home Meds Cyanocobalamin (Vitamin B12) [Vitamin B12] 1 tab PO DAILY 02/26/18 [History] Magnesium 1 tab PO BEDTIME 02/26/18 [History] Melatonin 2 tab PO BEDTIME 02/26/18 [History] Norethindrone [Aygestin] 3 tab PO DAILY 02/26/18 [History] Sertraline HCl 50 mg PO DAILY 02/26/18 [History] Vitamin E 1 tab PO DAILY 02/26/18 [History] sulfaSALAzine [Sulfazine] 1 tab PO BID 02/26/18 [History] oxyCODONE 03/03/18 [History] Past Medical History HEENT History: Reports: None Other Gastrointestinal History: ulcerative colitis, occasional heartburn Genitourinary History: Reports: None 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: Dysfunctional Uterine Bleeding, Ectopic , Psychiatric History: Reports: Anxiety, Depression Hematologic History: Reports: Blood Transfusion(s) - Infectious Disease History Infectious Disease History: Reports: None - Past Surgical History Head Surgeries/Procedures: Reports: None HEENT Surgical History: Reports: Tonsillectomy Female Surgical History: Reports: Hysterectomy, Tubal Ligation, Other (See Below) Other Female Surgeries/Procedures: laparotomy for ectopic Social & Family History - Family History Family Medical History: Noncontributory - Tobacco Use Smoking Status *Q: Never Smoker - Recreational Drug Use Recreational Drug Use: No ED ROS GENERAL - Review of Systems Review Of Systems: See Below ED EXAM, GENERAL - Physical Exam Exam: See Below Course - Vital Signs Last Recorded V/S: Last Vital Signs Temp 98.5 F 03/03/18 17:23 Pulse 91 03/03/18 17:23 Resp 18 03/03/18 17:23 BP 162/77 H 03/03/18 17:23 Pulse Ox 98 03/03/18 17:23 - Orders/Labs/Meds Orders: Active Orders 24 hr Category Date Time Status Abdomen 2V AP Flat Upright [CR] Stat Exams 03/03/18 18:14 Taken CULTURE URINE [RM] Stat Lab 03/03/18 17:23 Ordered UA W/MICROSCOPIC [URIN] Stat Lab 03/03/18 17:23 Ordered Labs: Laboratory Tests 03/03/18 03/03/18 Range/Units 17:51 17:51 WBC 12.42 H (4.0-11.0) K/uL RBC 4.57 (4.30-5.90) M/uL Hgb 14.2 (12.0-16.0) g/dL Hct 42.1 (36.0-46.0) % MCV 92.1 (80.0-98.0) fL MCH 31.1 (27.0-32.0) pg MCHC 33.7 (31.0-37.0) g/dL RDW Std Deviation 43.7 (28.0-62.0) fl RDW Coeff of Brandon 13 (11.0-15.0) % Plt Count 205 (150-400) K/uL MPV 10.10 (7.40-12.00) fL Neut % (Auto) 79.1 (48.0-80.0) % Lymph % (Auto) 10.5 L (16.0-40.0) % [place] % (Auto) 9.1 (0.0-15.0) % Eos % (Auto) 0.9 (0.0-7.0) % Baso % (Auto) 0.4 (0.0-1.5) % Neut # (Auto) 9.8 H (1.4-5.7) K/uL Lymph # (Auto) 1.3 (0.6-2.4) K/uL [place] # (Auto) 1.1 H (0.0-0.8) K/uL Eos # (Auto) 0.1 (0.0-0.7) K/uL Baso # (Auto) 0.1 (0.0-0.1) K/uL Nucleated RBC % 0.0 /100WBC Nucleated RBCs # 0 K/uL Sodium 139 (136-145) mmol/L Potassium 3.7 (3.5-5.1) mmol/L Chloride 107 (98-107) mmol/L Carbon Dioxide 22.1 (21.0-32.0) mmol/L BUN 18 (7.0-18.0) mg/dL Creatinine 1.2 H (0.6-1.0) mg/dL Est Cr Clr Drug Dosing 57.83 mL/min Estimated GFR (MDRD) 47.9 ml/min Glucose 134 H (74-106) mg/dL Calcium 9.1 (8.5-10.1) mg/dL Total Bilirubin 0.2 (0.2-1.0) mg/dL AST 7 L (15-37) IU/L ALT 15 (14-63) IU/L Alkaline Phosphatase 54 (46-116) U/L Total Protein 6.9 (6.4-8.2) g/dL Albumin 3.3 L (3.4-5.0) g/dL Globulin 3.6 (2.6-4.0) g/dL Albumin/Globulin Ratio 0.9 (0.9-1.6) Meds: Medications Discontinued Medications Generic Name Dose Route Start Last Admin Trade Name Freq PRN Reason Stop Dose Admin Morphine Sulfate 2 mg 03/03/18 18:33 03/03/18 18:53 Morphine IM 03/03/18 18:34 2 mg ONETIME ONE Administration Departure - Departure Time of Disposition: 19:14 Disposition: Home, Self-Care 01 Condition: Good Clinical Impression: Abdominal pain - Discharge Information Referrals: PCP,Unknown [Primary Care Provider] - Forms: ED Department Discharge Additional Instructions: Medication as prescribed Return if symptoms persist or worsen Follow-up with Dr. Sharma as scheduled The following information is given to patients seen in the emergency department who are being discharged to home. This information is to outline your options for follow-up care. We provide all patients seen in our emergency department with a follow-up referral. The need for follow-up, as well as the timing and circumstances, are variable depending upon the specifics of your emergency department visit. If you don't have a primary care physician on staff, we will provide you with a referral. We always advise you to contact your personal physician following an emergency department visit to inform them of the circumstance of the visit and for follow-up with them and/or the need for any referrals to a consulting specialist. The emergency department will also refer you to a specialist when appropriate. This referral assures that you have the opportunity for follow-up care with a specialist. All of these measure are taken in an effort to provide you with optimal care, which includes your follow-up. Under all circumstances we always encourage you to contact your private physician who remains a resource for coordinating your care. When calling for follow-up care, please make the office aware that this follow-up is from your recent emergency room visit. If for any reason you are refused follow-up, please contact the [facility] emergency department at and asked to speak to the emergency department charge nurse. - My Orders Last 24 Hours: My Active Orders 03/03/18 17:23 CULTURE URINE [RM] Stat UA W/MICROSCOPIC [URIN] Stat 03/03/18 18:14 Abdomen 2V AP Flat Upright [CR] Stat - Assessment/Plan Last 24 Hours: My Active Orders 03/03/18 17:23 CULTURE URINE [RM] Stat UA W/MICROSCOPIC [URIN] Stat 03/03/18 18:14 Abdomen 2V AP Flat Upright [CR] Stat
[2018-03-03] MEDS ORDERED: Morphine 2 MG/ML Syringe IM ONE (18:33)
--- NOTE | 2018-03-03 19:16 | CR ---
INDICATION: Status post hysterectomy 2 days ago; difficulty urinating; not able to have bowel movement; abdominal pain. COMPARISON: None. TECHNIQUE: Portable AP and upright radiograph abdomen. FINDINGS: Nonspecific intestinal gas pattern. No evidence of intestinal obstruction. No pneumoperitoneum. IMPRESSION: Negative portable radiographic examination of the abdomen. Dictated by Tara Joaquin MD @ Mar 03 2018 7:13PM Signed by Dr. Tara Joaquin @ Mar 03 2018 7:14PM
== END 2018-03-03 19:24 | disposition home or self-care (01) ==
LOC: MW.ED 17:18
DX: K51.90 Ulcerative colitis, unspecified, without complications (principal); F41.9 Anxiety disorder, unspecified; F32.9 Major depressive disorder, single episode, unspecified; Z79.899 Other long term (current) drug therapy
CPT/HCPCS: 36415; 74019; 80053; 85025; 96372; 99284; J2270; 99282

== ENCOUNTER 2021-04-27 11:04 | Day surgery (SDC) | payer BC ==
[~2021-04-27 11:04] MED LIST changes: +Albuterol 0.083% 2.5 MG/3 ML Neb Soln NEB PRN; -Dexamethasone 4 MG/ML 5 ML MDV ONE; -Furosemide 40 MG/4 ML VIAL ONE; -Glycopyrrolate 0.2 MG/ML SDV ONE; +HYDROmorphone 1 MG/ML Syringe IVPUSH PRN; +Metoclopramide 10 MG/2 ML SDV IVPUSH PRN; -Midazolam 1 MG/ML 2 ML SDV ONE; +Morphine 2 MG/ML SYRINGE IVPUSH PRN; +Naloxone 0.4 MG/ML SDV IVPUSH PRN; -Neostigmine Methylsulfate 1 MG/ML 5 ML Syringe ONE; +Ondansetron 4 MG/2 ML SDV IVPUSH PRN; -Ondansetron 4 MG/2 ML SDV ONE; -Phenylephrine 1% 10 MG/ML SDV ONE; -Propofol 200 MG/20 ML SDV ONE; -Rocuronium 10 MG/ML 10 ML Syringe ONE; +Scopolamine 1.5 MG Transdermal Patch ONE; -Sodium Chloride 0.9% 20 ML ONE; +Sodium Chloride 0.9% 20 ML SDV IV PRN; -ceFAZolin 1 GM Vial ONE; -diphenhydrAMINE 50 MG/ML SDV ONE; +fentaNYL 100 MCG/2 ML SDV IVPUSH PRN; -fentaNYL 250 MCG/5 ML SDV ONE
[2021-04-27] MEDS ORDERED: Octyl 2-Cyanoacrylate 1 Tube ONE (11:25)
[2021-04-27] MEDS ORDERED: Bupivacaine 0.5% 10 ML SDV ONE (11:25)
[2021-04-27] MEDS ORDERED: Propofol 200 MG/20 ML SDV ONE (11:43)
[2021-04-27] MEDS ORDERED: fentaNYL 100 MCG/2 ML SDV ONE (11:43)
[2021-04-27] MEDS ORDERED: Lidocaine 2% 5 ML SDV ONE (11:44)
[2021-04-27] MEDS ORDERED: Esmolol 100 MG/10 ML SDV ONE (11:44)
[2021-04-27] MEDS ORDERED: Water For Injection, Sterile 20 ML ONE (11:44)
[2021-04-27] MEDS ORDERED: Rocuronium Bromide 50 MG/5 ML Syringe ONE ×2 (11:44→12:57)
[2021-04-27] MEDS ORDERED: Dexmedetomidine 200 MCG/2 ML SDV ONE (11:44)
[2021-04-27] MEDS ORDERED: Midazolam 1 MG/ML 2 ML SDV ONE (11:44)
[2021-04-27] MEDS ORDERED: Dexamethasone 4 MG/ML 5 ML MDV ONE (12:36)
[2021-04-27] MEDS ORDERED: Sugammadex Sodium 200 MG/2 ML VIAL ONE (12:46)
[2021-04-27] MEDS ORDERED: Ondansetron 4 MG/2 ML SDV ONE (12:46)
[2021-04-27] MEDS ORDERED: Ketorolac 30 MG/ML SDV ONE (12:46)
[2021-04-27] MEDS ORDERED: HYDROmorphone 2 MG/ML Syringe ONE (13:39)
== END 2021-04-27 15:45 | disposition home or self-care (01) ==
LOC: MW.SDS 11:04
PROVIDERS: ATTEND Surgery
DX: K81.1 Chronic cholecystitis (principal); K82.8 Other specified diseases of gallbladder; K42.9 Umbilical hernia without obstruction or gangrene; K66.0 Peritoneal adhesions (postprocedural) (postinfection); F51.04 Psychophysiologic insomnia; F32.A Depression, unspecified; Z79.899 Other long term (current) drug therapy; Z98.890 Other specified postprocedural states
CPT/HCPCS: 47562; A9270; J0131; J1100; J1170; J2250; J2405; J2704; J3010; J3490; J7030; J7120; 00790; J1885